=== PATIENT | male | born 1985 | race Caucasian/White ===

== ENCOUNTER → 2020-12-04 | Outpatient (REF) ==
--- NOTE | 2020-12-04 11:25 | REP ---
INDICATION: PARESTHESIA OF SKIN COMPARISON: None. TECHNIQUE: AP, lateral, coned-down views of the lumbar spine. FINDINGS: Three views of the lumbosacral spine demonstrate satisfactory alignment and lordosis without acute fracture / compression injury or subluxation. No significant degenerative changes are appreciated. IMPRESSION: 1. No acute fracture / compression injury or subluxation. 2. No significant degenerative changes appreciated. <Electronically signed by Chencho Hudson > 12/04/20 1124
== END ==
LOC: M RAD 10:50
PROVIDERS: ATTEND Internal Medicine
DX: Z02.71 Encounter for disability determination (principal); M54.9 Dorsalgia, unspecified